=== PATIENT | male | born 2005 ===

== ENCOUNTER → 2024-08-11 | Outpatient (REF) | payer OTHER | LOC: M LAB REF 17:31 | PROVIDERS: ATTEND Registered Nurse | DX: J03.90 Acute tonsillitis, unspecified (principal) ==

== ENCOUNTER → 2024-08-12 | Outpatient (CLI) | payer OTHER | LOC: M WUC 12:18 | PROVIDERS: ATTEND Registered Nurse | DX: J06.9 Acute upper respiratory infection, unspecified (principal) ==